=== PATIENT | male | born 1995 | race Caucasian/White ===

== ENCOUNTER 2020-11-09 01:20 | Emergency (ER) | payer SELFPAY ==
[~2020-11-09] VITALS: Ht 172.7 cm; Wt 82.0 kg
[2020-11-09 01:39] VITALS: BP 128/83
== END 2020-11-09 02:32 | disposition left against medical advice (07) ==
LOC: ER 01:20
DX: Z53.21 Procedure and treatment not carried out due to patient leaving prior to being seen by health care provider (principal)